=== PATIENT | female | born 1975 | race Two or more races ===

== ENCOUNTER 2018-10-05 20:11 | Emergency (ER) | payer SELFPAY ==
[2018-10-05 20:55] VITALS: BP 103/59
[2018-10-05] MEDS ORDERED: Tetan/Diph/Pertus SYR(Tdap)* 0.5 ML SYR(BOOSTRIX) use SYR IM ONE (20:55)
--- NOTE | 2018-10-05 20:56 | UC ---
General HPI - HPI Summary HPI Summary: TRANSLATION LINE USED. PT FELL 8 DAYS AGO AND HIT HER LEFT KNEE ON A ROCK. THE PAST 3 DAYS, IT STARTED TO TURN RED AND SWELL. + FEVER, CHILLS AND JOINT PAIN. - History of Current Complaint Stated Complaint: LEFT LEG LAC Time Seen by Provider: 10/05/18 20:44 Hx Obtained From: Patient Onset/Duration: Gradual Onset Timing: Constant - Allergy/Home Medications Allergies/Adverse Reactions: Allergies Allergy/AdvReac Type Severity Reaction Status Date / Time Penicillins Allergy Hives Verified 10/05/18 20:56 Home Medications: Home Medications NK [No Home Medications Reported] 10/05/18 [History Confirmed 10/05/18] PMH/Surg Hx/FS Hx/Imm Hx Previously Healthy: Yes - Surgical History Surgical History: Yes - HYSTERECTOMY - Family History Known Family History: Positive: Non-Contributory - Social History Lives: With Family Alcohol Use: None Smoking Status (MU): Never Smoked Tobacco - Immunization History Hx Tetanus, Diphtheria Vaccination: No - pt requesting Review of Systems All Other Systems Reviewed And Are Negative: No Constitutional: Positive: Fever, Chills Skin: Positive: Rash Musculoskeletal: Positive: Arthralgia - L knee, Edema - LLE. Negative: Decreased ROM Neurological: Negative: Weakness, Numbness Physical Exam Triage Information Reviewed: Yes Appearance: Well-Appearing Vital Signs Reviewed: Yes Eyes: Positive: Conjunctiva Clear Neck: Positive: Supple Respiratory: Positive: No respiratory distress Cardiovascular: Positive: RRR Musculoskeletal: Positive: Other: - LLE: hip non tender. Medial knee with 8" area of deep erythema, swelling, warmth and tenderness. There is peripheral bruising to the site and a central wound with clear drainage. Under the central wound is local induration. some of the swelling does extend to more superior and inferior portions of the leg. Pt is able to flex and extend the knee but c/ o pain. The leg is otherwise unremarkable and has gross s/v/m function. Neurological: Positive: Alert Psychological: Positive: Age Appropriate Behavior Skin Exam: Normal Course/Dx - Course Course Of Treatment: Report called to Ayla Angeles NP. I advised of wound, cellulitis, f/c's and joint pain plus concern for abscess. - Differential Dx - Multi-Symptom Differential Diagnoses: Other - there is a wound with secondary cellulitis. given joint pain and underlying induration, abscess and septic joint are of concern. xrays defer to Er as well. pt agress to ER transfer for additional evaluation. - Diagnoses Provider Diagnosis: Cellulitis of left knee, Open wound of left knee Discharge - Sign-Out/Discharge Documenting (check all that apply): Patient Departure All imaging exams completed and their final reports reviewed: No Studies - Discharge Plan Condition: Stable Disposition: TRANS HIGHER LVL OF CARE FAC Referrals: No Primary Care Phys,NOPCP [Primary Care Provider] - Additional Instructions: LEAVE HERE AND GO DIRECTLY TO THE [facility] ER. - Billing Disposition and Condition Condition: STABLE Disposition: Trans Higher Lvl of Care Fac
== END 2018-10-05 21:05 | disposition short-term general hospital (02) ==
LOC: UCCORT 20:11
DX: S81.002A Unspecified open wound, left knee, initial encounter (principal); L03.116 Cellulitis of left lower limb; W19.XXXA Unspecified fall, initial encounter; Y93.9 Activity, unspecified; Z88.0 Allergy status to penicillin
CPT/HCPCS: 90471; 90715; 99201; G0463